=== PATIENT | female | born 1975 | race Caucasian/White ===

== ENCOUNTER 2019-10-19 08:08 | Observation (INO) | payer OTHER ==
[2019-10-13 16:23] LABS: BASOPHILS % 0.2 % (0.0-1.0); HEMATOCRIT 42.4 % (34.2-44.1); LYMPHOCYTES # (AUTO) 1.7 (1.0-3.2); LYMPHOCYTES % 17.3 % (18.0-39.1); MEAN CORPUSCULAR HEMOGLOBIN 29.7 pg (28-32); MEAN CORPUSCULAR VOLUME 89.8 fL (81-99); MONOCYTES # (AUTO) 0.7 (0.2-0.8); MONOCYTES % 6.7 % (4.4-11.3); NEUTROPHILS # (AUTO) 7.6 (2.1-6.9); NEUTROPHILS % 75.2 % (38.7-80.0); PLATELET COUNT 304 x10e3/uL (140-360); RED BLOOD COUNT 4.72 x10e6/uL (3.6-5.1); RED CELL DISTRIBUTION WIDTH 12.2 % (11.7-14.4)
[2019-10-13 16:34] LABS: PROTHROMBIN TIME 13.7 seconds (11.9-14.5)
[2019-10-13 16:35] LABS: PARTIAL THROMBOPLASTIN TIME 28.4 seconds (23.8-35.5)
[2019-10-13 16:39] LABS: ANION GAP 13.3 mmol/L (8-16); BLOOD UREA NITROGEN 11 mg/dL (7-26); BUN/CREATININE RATIO 13 (6-25); CALCIUM 9.3 mg/dL (8.4-10.2); CARBON DIOXIDE 25 mmol/L (22-29); CHLORIDE 106 mmol/L (98-107); CREATININE, SERUM 0.86 mg/dL (0.57-1.11); EST GLOMERULAR FILTRATION RATE > 60 ML/MIN (60-); GLUCOSE 91 mg/dL (74-118); POTASSIUM 4.3 mmol/L (3.5-5.1); SODIUM 140 mmol/L (136-145)
--- NOTE | 2019-10-13 16:52 | Diagnostic Imaging Report ---
Examination: PA and lateral view of the chest. COMPARISON: None. INDICATION: Preoperative evaluation, neck surgery DISCUSSION: Lines/tubes: None. Lungs: The lungs are well inflated and clear. No pneumonia or pulmonary edema. Pleura: No pleural effusion or pneumothorax. Heart and mediastinum: The heart and the mediastinum are unremarkable. Bones and soft tissues: No acute bony abnormalities. IMPRESSION: 1. No acute cardiopulmonary abnormalities. Signed by: Dr. Trevor Nunez M.D. on 10/13/2019 4:49 PM
[~2019-10-19] VITALS: Ht 165.1 cm; Wt 59.0 kg
[~2019-10-19 08:08] MED LIST: CALCIUM CARBON500 MG PO; CELLCEPT500 MG PO; COMBIGAN EYE DRO5 ML OU; CYMBALTA60 MG PO; ELIQUIS2.5 MG PO; ILEVRO1.7 ML OU; LOVENOX40 MG/0.4 SC; MELATONIN3 MG PO; PREDNISONE5 MG PO; PREVACID15 MG PO
[2019-10-19] MEDS ORDERED: BUPIVACAINE 0.5%/EPI 30 ML SDV INJ ONE (08:25)
[2019-10-19] MEDS ORDERED: BACITRACIN 50,000 UNIT VIAL ONE (08:25)
[2019-10-19] MEDS ORDERED: THROMBIN FOR SOLN 5,000 UNIT VIAL ONE (08:25)
[2019-10-19] MEDS ORDERED: CEFAZOLIN SOD 1 GM/NS 50ML 100 ML IV ONE (08:34)
[2019-10-19] MEDS ORDERED: EPHEDRINE SULFATE INJ 50 MG/ML VIAL ONE (11:05)
[2019-10-19] MEDS ORDERED: HYDROMORPHONE 2MG/ML 2 MG/ML ML IV PRN (12:15)
[2019-10-19] MEDS ORDERED: PROMETHAZINE HCL (IM) 25 MG/ML VIAL IM PRN (12:15)
[2019-10-19] MEDS ORDERED: CARISOPRODOL 350 MG TAB PO PRN (12:15)
[2019-10-19] MEDS ORDERED: ACETAMINOPHEN 325 MG TAB PO PRN (12:15)
[2019-10-19] MEDS ORDERED: CEPACOL SORE THROAT LOZENGES PO PRN (12:15)
[2019-10-19] MEDS ORDERED: MAGNESIUM/ALUMINUM/SIMETHICONE 30 ML UDC PO PRN (12:15)
[2019-10-19] MEDS: LACTATED RINGER'S 1,000 ML IV SCH ×2 (12:15→20:35)
[2019-10-19] MEDS ORDERED: ONDANSETRON HCL INJ 2MG/ML 2ML 2 MG/ML VIAL IV PRN (12:15)
[2019-10-19] MEDS ORDERED: MORPHINE SULFATE 5 MG/ML VIAL IM PRN (12:15)
[2019-10-19] MEDS ORDERED: LORAZEPAM INJ 2 MG/ML VIAL ONE (12:18)
[2019-10-19] MEDS ORDERED: FENTANYL CITRATE/PF 100MCG/2 ML INJ ONE ×2 (12:26→14:41)
[2019-10-19] MEDS ORDERED: HYDROMORPHONE 1MG/1ML INJ ONE (12:46)
--- NOTE | 2019-10-19 13:24 | Operative Report ---
DATE OF PROCEDURE: 10/19/2019 SURGEON: Andreas Smith MD PREOPERATIVE DIAGNOSIS: C5-C6 and C6-C7 spondylosis and disk herniation with radiculopathy, M50.120. POSTOPERATIVE DIAGNOSIS: C5-C6 and C6-C7 spondylosis and disk herniation with radiculopathy, M50.120. PROCEDURES: 1. C5-C6 anterior cervical diskectomy and microsurgical osteophyte resection and allograft fusion, 49146. 2. C6-C7 anterior cervical diskectomy and microsurgical osteophyte resection and allograft fusion, 63763. 3. Preparation of tricortical iliac crest allograft, 72921. 4. C5-C6 and C6-C7 anterior cervical plating with Synthes small stature plate, 71209. ANESTHESIA: General. INDICATIONS: The patient is a 44-year-old woman, who presents with C5-C6 and C6-C7 spondylosis and disk herniations with cervical radiculopathy, worse on the left and refractory to conservative treatment. She was taken surgery for two-level anterior cervical decompression and fusion. PROCEDURE IN DETAIL: After induction of general anesthesia, the patient was placed on the operating table in supine position. The right side of the neck was prepped and draped in sterile fashion. The fluoroscopic C-arm was positioned in cross-table lateral orientation. A transverse incision was created. The right side of neck superimposed on the C6 vertebral body as determined by fluoroscopy. The platysma was divided in line with the incision. A subplatysmal dissection was carried out and avascular plane of dissection was developed medially. Sternocleidomastoid muscle was followed medial to the carotid sheath to the anterior border of the cervical spine. The deep cervical fascia was opened. The esophagus was retracted to the left. The attachments of longus colli muscles to the anterolateral aspects of vertebral bodies of C5, C6, and C7 were divided. The anterior longitudinal ligament was resected. Mcarthur posts were inserted into C5 and C7. The Mcarthur distractor was used to distract both disk spaces simultaneously. The anterior annuli of the disks were incised with a #11 blade and the contents of both disks were thoroughly evacuated with angled curettes and pituitary instruments. The posterior osteophytes were then meticulously drilled under operating microscope with a 2 mm cutting bur on a high-speed drill until they were completely removed. The posterior annulus of the disk, herniated disk material, and the posterior longitudinal ligament were then resected layer by layer until the dura was fully exposed and decompressed. Specifically, left-sided disk herniation at C6-C7 and a right-sided disk herniation at C5-C6 were retrieved and removed. The medial aspects of the uncinate processes were further resected bilaterally at both levels to expose and decompress the origins of the corresponding C6 and C7 nerve roots. After satisfactory decompression had been achieved, the endplates were prepared for fusion. Two pieces of tricortical iliac crest allograft were cut to size and shapes of the disk spaces and were inserted into disk spaces under distraction and fluoroscopic guidance. The distraction was released and distraction posts were removed. A Synthes CSLP small stature anterior cervical plate measuring 31 mm in length was selected and was affixed to the vertebral bodies of C5, C6, and C7 with three pairs of 14 x 4.35 mm screws. All screw holes were drilled and tapped on the lateral fluoroscopic guidance. All screws were locked with the appropriate locking screws. An excellent construct was obtained. The wound was copiously irrigated with bacitracin solution. Meticulous hemostasis was secured. Retractor was removed. The platysma was closed with 3-0 Vicryl sutures. The skin was closed with 4-0 Monocryl sutures in subcuticular fashion. Steri-Strips and dressing were applied. The patient was awakened, extubated, and taken to Postanesthesia Care Unit in stable condition. No intraoperative complications were encountered. Estimated blood loss was 20 mL. Andreas Smith MD PP/PRISCILLA /[id number]
--- OUTSIDE RECORDS SUMMARY | 2019-10-19 13:40 | XMS REPORT | Summary of Care ---
Author Author [facility] Organization [facility] Address Unknown Phone Unavailable Encounter FIN [facility] [id number] Date(s): 12/28/17 - 12/28/17 [facility] [address] [place], [place] [address] Discharge Diagnosis: Spondylosis without myelopathy or radiculopathy, cervical r egion Discharge Disposition: Discharged to Home or Self Care Attending Physician: Saw HELLER, Sebastian Cheung Admitting Physician: Sebastian Spring MD Vital Signs 1 2 3 Most recent to oldest [Reference Range]: 37 DegC (12/28/17 11:03 AM) Temperature Temporal Artery [36.3-37.8 DegC] 63 bpm (12/28/17 11:03 AM) Peripheral Pulse Rate [55-105 bpm] 63 bpm (12/28/17 11:45 AM) 70 bpm (12/28/17 11:40 AM) 62 bpm (12/28/17 11:35 AM) Heart Rate Monitored [60-100 bpm] 14 (12/28/17 11:45 AM) 18 (12/28/17 11:40 AM) 18 (12/28/17 11:35 AM) Respiratory Rate [12-20] 99 % (12/28/17 11:45 AM) 100 % (12/28/17 11:40 AM) 99 % (12/28/17 11:35 AM) SpO2 [90-100 %] 103/59 mmHg *LOW* (12/28/17 11:45 AM) Blood Pressure [110-120/65-85 mmHg] 118 mmHg (12/28/17 11:40 AM) 119 mmHg (12/28/17 11:35 AM) Systolic Blood Pressure [110-120 mmHg] 70 mmHg (12/28/17 11:40 AM) 80 mmHg (12/28/17 11:35 AM) Diastolic Blood Pressure [65-85 mmHg] 73.7 mmHg (12/28/17 11:45 AM) Mean Arterial Pressure, Cuff 166 cm (12/28/17 11:03 AM) Height 166 cm (12/28/17 11:03 AM) Height/Length Dosing 65 in (12/28/17 11:03 AM) Height Inches 57 kg (12/28/17 11:03 AM) Weight 57 kg (12/28/17 11:03 AM) Weight Dosing 125 lb (12/28/17 11:03 AM) Weight Pounds 20.69 kg/m2 (12/28/17 11:03 AM) Body Mass Index Problem List Condition Effective Dates Status Health Status Informan t DVT - Deep vein Active thrombosis(Confirmed ) Factor 5 Leiden Active mutation(Confirmed) Fibromyalgia(Confirm Active ed) GERD - Active Gastro-esophageal reflux disease(Confirmed) Neuropathy(Confirmed Active ) Allergies, Adverse Reactions, Alerts Substance Reaction Severity Status erythromycin Active Medications Cymbalta 60 mg oral delayed release capsule 60 mg = 1 caps, Oral, Daily, (do not crush or chew) Start Date: 12/27/17 Stop Date: 01/10/18 Status: Ordered Eliquis 2.5 mg oral tablet mg tabs, Oral, BID Start Date: 12/27/17 Stop Date: 01/10/18 Status: Ordered Lovenox 80 mg/0.8 mL injectable solution 80 mg = 0.8 mL, Subcutaneous, Daily Start Date: 12/27/17 Stop Date: 01/10/18 Status: Ordered LR 500 mL 500 mL, IV, 75 mL/hr, start date 12/28/17 10:34:00 CDT Start Date: 12/28/17 Stop Date: 12/28/17 Status: Discontinued Zantac 150 150 mg = 1 tabs, Oral, Daily Start Date: 12/27/17 Stop Date: 01/10/18 Status: Ordered Results No data available for this section Immunizations No data available for this section Procedures Procedure Date Related Diagnosis Body Site Hysterectomy sinus surgery tonsillectomy and adenoidectomy vein graft due to clot Social History Social History Type Response Assessment and Plan No data available for this section
--- OUTSIDE RECORDS SUMMARY | 2019-10-19 13:40 | XMS REPORT | Summary of Care ---
Author Author [facility] Address Unknown Phone Unavailable Encounter [facility](FIN) [id number] Date(s): 09/12/19 - 10/11/19 [facility] Discharge Disposition: Home or Self Care Attending Physician: Casper Stover MD Vital Signs No data available for this section Problem List Condition Effective Dates Status Health Status Informan t Cervical Active pain(Confirmed) Allergies, Adverse Reactions, Alerts Substance Reaction Severity Status erythromycin Active Medications No data available for this section Results No data available for this section Immunizations No data available for this section Procedures Procedure Date Related Diagnosis Body Site Status Adenoidectomy Completed Hysterectomy - partial Completed sinus surgery Completed Tonsillectomy Completed Vein graft thrombectomy Completed Social History Social History Type Response Smoking Status Never smoker; Exposure to T obacco Smoke None; Cigarette Smoking Last 365 Days No; Reg Smoking Cessation Counseli ng No entered on: 04/27/19 Assessment and Plan No data available for this section
--- OUTSIDE RECORDS SUMMARY | 2019-10-19 13:40 | XMS REPORT | Summary of Care ---
Author Author [facility] Organization [facility] Address Unknown Phone Unavailable Encounter [facility] Neena(FIN) [id number] Date(s): 02/19/19 - 02/19/19 [facility] [address] [place] [address]- [phone] Encounter Diagnosis Flu-like symptoms (Discharge Diagnosis) - 02/19/19 Cough (Discharge Diagnosis) - 02/19/19 Sinusitis (Discharge Diagnosis) - 02/19/19 Discharge Disposition: Home or Self Care Attending Physician: Vinay Sheppard MD Vital Signs Most recent to 1 2 oldest [Reference Range]: Height 165.1 cm (02/19/19 2:34 PM) Temperature Oral 97.9 DegF [96.4-99.1 DegF] (02/19/19 2:34 PM) Blood Pressure 130/79 mmHg 116/80 mmHg [90-140/60-90 mmHg] (02/19/19 5:03 PM) (02/19/19 2:34 PM) Respiratory Rate 17 BRMIN 18 BRMIN [14-20 BRMIN] (02/19/19 5:03 PM) (02/19/19 2:34 PM) Peripheral Pulse 65 bpm 67 bpm Rate [60-100 bpm] (02/19/19 5:03 PM) (02/19/19 2:34 PM) Weight 60.909 kg (02/19/19 2:34 PM) Body Mass Index 22.35 m2 (02/19/19 2:34 PM) Problem List Condition Effective Dates Status Health Status Informan t Cervical Active pain(Confirmed) Allergies, Adverse Reactions, Alerts Substance Reaction Severity Status erythromycin Active Medications Levaquin 750 mg oral tablet 750 mg = 1 tab, PO, Q24H, X 10 day, # 10 tab, 0 Refill(s) Start Date: 02/19/19 Stop Date: 03/01/19 Status: Ordered NS (Bolus) IV 1,000 mL, 1,000 ml/hr, Infuse Over: 1 hr, Route: IV, ONCE, Priority: STAT, Dosin g Weight 60.909 kg, Start date: 02/19/19 15:04:00 ONCOLOGY RADIATION PHYSICIAN, Stop date: 02/19/19 15:04 :00 ONCOLOGY RADIATION PHYSICIAN Start Date: 02/19/19 Stop Date: 02/19/19 Status: Completed TamiFLU 75 mg oral capsule 75 mg, PO, Q12H, X 5 day, # 10 cap, 0 Refill(s) Start Date: 02/19/19 Stop Date: 02/24/19 Status: Ordered Results Most recent to 1 oldest [Reference Range]: Neutrophils # 9.9 K/CMM [1.5-8.1 K/CMM] *HI* (02/19/19 3:13 PM) Lymphocytes # 0.8 K/CMM [1.0-5.5 K/CMM] *LOW* (02/19/19 3:13 PM) Monocytes # [0.0-0.8 0.2 K/CMM K/CMM] (02/19/19 3:13 PM) eGFR 87 mL/min/1.73m2 1 *NA* (02/19/19 3:13 PM) Influ A [Negative] Negative (02/19/19 3:13 PM) Influ B [Negative] Negative (02/19/19 3:13 PM) A/G Ratio [0.7-1.6] 1.3 (02/19/19 3:13 PM) Albumin Lvl [3.5-5.0 3.5 g/dL g/dL] (02/19/19 3:13 PM) Alk Phos [39-136 55 unit/L unit/L] (02/19/19 3:13 PM) ALT [0-65 unit/L] 30 unit/L (02/19/19 3:13 PM) AGAP [10.0-20.0 10.9 mEq/L mEq/L] (02/19/19 3:13 PM) AST [0-37 unit/L] 22 unit/L (02/19/19 3:13 PM) B/C Ratio [6-25] 16 (12/15/19 3:13 PM) Basophils [0.0-1.0 0.2 % %] (02/19/19 3:13 PM) BUN [7-22 mg/dL] 13 mg/dL (02/19/19 3:13 PM) Calcium Lvl 8.7 mg/dL [8.5-10.5 mg/dL] (02/19/19 3:13 PM) Total CK [12-191 49 unit/L unit/L] (02/19/19 3:13 PM) Chloride Lvl [95-109 104 mEq/L mEq/L] (02/19/19 3:13 PM) CO2 [24-32 mEq/L] 29 mEq/L (02/19/19 3:13 PM) Creatinine Lvl 0.83 mg/dL [0.50-1.40 mg/dL] (02/19/19 3:13 PM) Globulin [2.7-4.2 2.7 g/dL g/dL] (02/19/19 3:13 PM) Glucose Lvl [70-99 114 mg/dL mg/dL] *HI* (02/19/19 3:13 PM) Hct [36.0-48.0 %] 42.6 % (02/19/19 3:13 PM) Hgb [12.0-16.0 g/dL] 14.6 g/dL (02/19/19 3:13 PM) Potassium Lvl 3.9 mEq/L [3.5-5.1 mEq/L] (02/19/19 3:13 PM) Lactic Acid Lvl 1.0 mMol/L [0.5-2.2 mMol/L] (02/19/19 3:13 PM) Lymphocytes 7.3 % [20.0-40.0 %] *LOW* (02/19/19 3:13 PM) MCH [27.0-31.0 pg] 31.4 pg *HI* (02/19/19 3:13 PM) MCHC [32.0-36.0 34.2 g/dL g/dL] (02/19/19 3:13 PM) MCV [80.0-98.0 fL] 91.9 fL (02/19/19 3:13 PM) Monocytes [2.0-12.0 1.6 % %] *LOW* (02/19/19 3:13 PM) MPV [7.4-10.4 fL] 7.1 fL *LOW* (02/19/19 3:13 PM) Sodium Lvl [135-145 140 mEq/L mEq/L] (02/19/19 3:13 PM) Platelet [133-450 262 K/CMM K/CMM] (02/19/19 3:13 PM) Segs [45.0-75.0 %] 90.9 % *HI* (02/19/19 3:13 PM) Total Protein 6.2 g/dL [6.4-8.4 g/dL] *LOW* (02/19/19 3:13 PM) RBC [4.20-5.40 4.64 M/CMM M/CMM] (02/19/19 3:13 PM) RDW [11.5-14.5 %] 12.7 % (02/19/19 3:13 PM) Grp A Strep Scr Negative [Negative] (02/19/19 3:13 PM) Bili Total [0.2-1.3 0.4 mg/dL mg/dL] (02/19/19 3:13 PM) Troponin-I <0.02 ng/mL [0.00-0.40 ng/mL] (02/19/19 3:13 PM) UA Bacteria [None None Seen Seen] (02/19/19 3:34 PM) UA Bili [Negative] Negative *NA* (02/19/19 3:34 PM) UA Blood [Negative] Negative (02/19/19 3:34 PM) UA Color [Yellow] Yellow *NA* (02/19/19 3:34 PM) UA Glucose Negative [Negative] (02/19/19 3:34 PM) UA Ketones Negative [Negative] *NA* (02/19/19 3:34 PM) UA Leuk Est Negative [Negative] (02/19/19 3:34 PM) UA Nitrite Negative [Negative] (02/19/19 3:34 PM) UA pH [5.0-8.0] 7.5 (02/19/19 3:34 PM) UA Protein Negative [Negative] (02/19/19 3:34 PM) UA RBC [0-2 /HPF] 0-2 /HPF (02/19/19 3:34 PM) UA Spec Grav 1.015 [<=1.030] (02/19/19 3:34 PM) UA Sq Epi [Few /LPF] Occasional /LPF (02/19/19 3:34 PM) UA Turbidity [Clear] Clear (02/19/19 3:34 PM) UA Urobilinogen 0.2 EU/dL [0.1-1.0 EU/dL] (02/19/19 3:34 PM) UA WBC [None Seen] None Seen (02/19/19 3:34 PM) WBC [3.7-10.4 K/CMM] 10.9 K/CMM *HI* (02/19/19 3:13 PM) 1Result Comment: The eGFR is calculated using the CKD-EPI formula. In most young, healthy individuals the eGFR will be >90 mL/min/1.73m2. The eGFR declines with age. An eGFR of 60-89 may be normal in some populations, particularly the elderly, for whom the CKD-EPI formula has not been extensively validated. Use of the eGFR is not recommended in the following populations: Individuals with unstable creatinine concentrations, including patients and those with serious co-morbid conditions. Patients with extremes in muscle mass or diet. The data above are obtained from the National Kidney Disease Education Program ( NKDEP) which additionally recommends that when the eGFR is used in patients with extremes of body mass index for purposes of drug dosing, the eGFR should be mul tiplied by the estimated BMI. Immunizations No data available for this section Procedures Procedure Date Related Diagnosis Body Site Status Adenoidectomy Completed Hysterectomy - partial Completed sinus surgery Completed Tonsillectomy Completed Vein graft thrombectomy Completed Social History Social History Type Response Smoking Status Never smoker; Exposure to T obacco Smoke None; Cigarette Smoking Last 365 Days No; Reg Smoking Cessation Counseli ng No entered on: 02/19/19 Assessment and Plan No data available for this section
--- OUTSIDE RECORDS SUMMARY | 2019-10-19 13:40 | XMS REPORT | Continuity of Care Document ---
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 Role Phone [employer] Unavailable Un available Problems Problem Status Onset Date Classification Date Reported Comments Source CERICALGIA/MYALGIA Active 09/07/2019 [facility] Other general symptoms and signs 02/19/2019 02/21/2019 [facility] Cough 02/1902/21/2019 [facility] Chronic sinusitis, unspecified 02/19/2019 02/21/2019 [facility] HYPOTENSION Active 02/19/2019 [facility] Spondylosis without myelopathy or radicu lopathy, cervical region 01/19/2018 01/21/2018 [facility] Neck pain (finding) Active Problem 2019 [facility],[id number] Deep venous thrombosis (disorder) Active Problem [facility] Factor V Leiden mutation (disorder) Active Problem [facility] Fibromyalgia (disorder) Active Problem 10/05/2019 [facility] Gastroesophageal reflux disease (disorder) Active Problem 10/05/2019 [facility] Neuropathy (disorder) Active Problem 10/05/2019 [facility] Depressive disorder (disorder) Active Problem [facility] Medications Medication Details Route Status Patient Instructions Ordering Provider Order Date Source Levofloxacin 750 MG Oral Tablet [Levaquin] 750 mg = 1 tab, PO, Q24H, X 10 day, # 10 tab, 0 Refill(s) Active 02/19/2019 [facility] Oseltamivir 75 MG Oral Capsule [Tamiflu] 75 mg, PO, Q12H, X 5 day, # 10 cap, 0 Refill(s) Active 02/19/2019 [facility] NS (Bolus) IV 1,000 mL, 1,000 ml/hr, Infuse Over: 1 hr, Route: IV, ONCE, Priority: STAT, Dosing Weight 60.909 kg, 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, 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: 02/19/19 15:04:00 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 Inactive 02/19/2019 [facility] Vitamin D chewable 5000 units 1 tabs, Oral, Daily Active 01/19/2018 [facility] Probiotic Formula caps, Oral, Daily, 0 Refill(s) Active 01/19/2018 [facility] LR 500 mL 500 mL, IV, 75 mL/hr , start date 12/28/17 10:34:00 CDT Inactive 12/28/2017 [facility] Zantac 150 150 mg = 1 tabs, Or al, Daily Active 12/27/2017 [facility] duloxetine 60 MG Enteric Coated Capsule [Cymbalta] 60 mg = 1 caps, Oral, Daily, (do not crush or chew) Active 12/27/2017 [facility] 0.8 ML Enoxaparin sodium 100 MG/ML Prefi lled Syringe [Lovenox] 80 mg = 0.8 mL, Subcutaneous, Daily Active 12/27/2017 [facility] apixaban 2.5 MG Oral Tablet [Eliquis] mg tabs, Oral, BID Active 12/27/2017 [facility] Allergies, Adverse Reactions, Alerts Substance Category Reaction Severity Reaction type Status Date Reported Comments Source erythromycin Assertion Drug allergy Active [id number] Immunizations No Data Provided for This Section Results Order Name Results Value Reference Range Date Interpretation Comments Source URINE AND STOOL UA Color Yellow *NA* (02/19/19 3:34 PM) Yellow 02/19/2019 [facility] URINE AND STOOL UA Turbidity Clear (02/19/19 3:34 PM) Clear 02/19/2019 [facility] URINE AND STOOL UA Spec Grav 1.015 <=1.030 02/19/2019 [facility] URINE AND STOOL UA pH 7.5 5.0 - 8.0 02/19/2019 [facility] URINE AND STOOL UA Protein Negative (02/19/19 3:34 PM) Negative 02/19/2019 [facility] URINE AND STOOL UA Glucose Negative (02/19/19 3:34 PM) Negative 02/19/2019 [facility] URINE AND STOOL UA Ketones Negative *NA* (02/19/19 3:34 PM) Negative 02/19/2019 [facility] URINE AND STOOL UA Bili Negative *NA* (02/19/19 3:34 PM) Negative 02/19/2019 [facility] URINE AND STOOL UA Blood Negative (02/19/19 3:34 PM) Negative 02/19/2019 [facility] URINE AND STOOL UA Urobilinogen 0.2 0.1 - 1.0 02/19/2019 [facility] URINE AND STOOL UA Nitrite Negative (02/19/19 3:34 PM) Negative 02/19/2019 [facility] URINE AND STOOL UA Leuk Est Negative (02/19/19 3:34 PM) Negative 02/19/2019 [facility] URINE AND STOOL UA Sq Epi Occasional /LPF Few /LPF 02/19/2019 [facility] URINE AND STOOL UA WBC None Seen (02/19/19 3:34 PM) None Seen 02/19/2019 [facility] URINE AND STOOL UA RBC 0-2 /HPF 0 - 2 02/19/2019 [facility] URINE AND STOOL UA Bacteria None Seen (02/19/19 3:34 PM) None Seen 02/19/2019 [facility] CARDIAC ENZYMES Total CK 49 12 - 191 02/19/2019 [facility] CARDIAC ENZYMES Troponin-I <0.02 0.00 - 0.40 02/19/2019 [facility] CHEM PANEL Glucose Lvl 114 70 - 99 02/19/2019 [facility] CHEM PANEL BUN 13 7 - 22 02/19/2019 [facility] CHEM PANEL Creatinine Lvl 0.83 0.50 - 1.40 02/19/2019 [facility] CHEM PANEL Sodium Lvl 140 135 - 145 02/19/2019 [facility] CHEM PANEL Potassium Lvl 3.9 3.5 - 5.1 02/19/2019 [facility] CHEM PANEL Chloride Lvl 104 95 - 109 02/19/2019 [facility] CHEM PANEL CO2 29 24 - 32 02/19/2019 [facility] CHEM PANEL Calcium Lvl 8.7 8.5 - 10.5 02/19/2019 [facility] CHEM PANEL Total Protein 6.2 6.4 - 8.4 02/19/2019 [facility] CHEM PANEL Albumin Lvl 3.5 3.5 - 5.0 02/19/2019 [facility] CHEM PANEL ALT 30 0 - 65 02/19/2019 [facility] CHEM PANEL AST 22 0 - 37 02/19/2019 [facility] CHEM PANEL Alk Phos 55 39 - 136 02/19/2019 [facility] CHEM PANEL Bili Total 0.4 0.2 - 1.3 02/19/2019 [facility] CHEM PANEL eGFR 87 02/19/2019 Result Comment: The eGFR is calculated using the [...] from the National Kidney Disease Education Program (NKDEP) which additionally recommends that when the eGFR is used in patients with extremes of body mass index for purposes of drug dosing, the eGFR should be multiplied by the estimated BMI. [facility] CHEM PANEL AGAP 10.9 10.0 - 20.0 02/19/2019 [facility] CHEM PANEL B/C Ratio 16 6 - 25 02/19/2019 [facility] CHEM PANEL Globulin 2.7 2.7 - 4.2 02/19/2019 [facility] CHEM PANEL A/G Ratio 1.3 0.7 - 1.6 02/19/2019 [facility] CHEM PANEL Lactic Acid Lvl 1.0 0.5 - 2.2 02/19/2019 [facility] WBC 10.9 3.7 - 10.4 02/19/2019 [facility] RBC 4.64 4.20 - 5.40 02/19/2019 [facility] Hgb 14.6 12.0 - 16.0 02/19/2019 [facility] Hct 42.6 36.0 - 48.0 02/19/2019 [facility] MCV 91.9 80.0 - 98.0 02/19/2019 [facility] MCH 31.4 27.0 - 31.0 02/19/2019 [facility] MCHC 34.2 32.0 - 36.0 02/19/2019 [facility] RDW 12.7 11.5 - 14.5 02/19/2019 [facility] Platelet 262 133 - 450 02/19/2019 [facility] MPV 7.1 7.4 - 10.4 02/19/2019 [facility] Segs 90.9 45.0 - 75.0 02/19/2019 [facility] Lymphocytes 7.3 20.0 - 40.0 02/19/2019 [facility] HEMATOLOGY Monocytes 1.6 2.0 - 12.0 02/19/2019 [facility] HEMATOLOGY Basophils 0.2 0.0 - 1.0 02/19/2019 [facility] HEMATOLOGY Neutrophils # 9.9 1.5 - 8.1 02/19/2019 [facility] HEMATOLOGY Lymphocytes # 0.8 1.0 - 5.5 02/19/2019 [facility] Monocytes # 0.2 0.0 - 0.8 02/19/2019 [facility] RAPID Grp A Strep Scr Negative (02/19/19 3:13 PM) Negative 02/19/2019 [facility] VIRAL - SEROLOGY Influ A Negative (02/19/19 3:13 PM) Negative 02/19/2019 [facility] VIRAL - SEROLOGY Influ B Negative (02/19/19 3:13 PM) Negative 02/19/2019 [facility] Pathology Reports No Data Provided for This Section Diagnostic Reports Report Value Date Source Chest Pulmonary Embolism CTA Radiation Dose CTDIVOL = 0 (mGy): DLP = 434.2 (mGy-cm) PROCEDURE INFORMATION: Exam: CT Angiography Chest With Contrast Exam date and time: 02/19/2019 3:58 PM Age: 43 years old Clinical history: Chest pain; Additional info: /chest pain, h/o clotting disorder, eval for pe TECHNIQUE: Imaging protocol: Computed tomographic angiography of the chest with intravenous contrast. 3D rendering: MIP reconstructed images w ere created and reviewed. Total DLP: 434.2 mGy-cm Radiation optimization: All CT scans at this facility use at least one of these dose optimization techniques: automated exposure control; mA and/or kV adjustment per patient size (includes targeted exams where dose is matched to clinical indication); or iterative reconstruction. Contrast material: OMNI 300; Contrast volume: 100 ml; Contrast route: IV; COMPARISON: No relevant prior studies available. FINDINGS: Pulmonary arteries: No intraluminal filling defects are visualized in the pulmonary trunk, right and left main pulmonary arteries, lobar and segmental arteries. Aorta: No aortic aneurysm. No aortic dissection. Thyroid: Symmetric appearance of thyroid gland without focal abnormality. Lungs: Mild pulmonary hyperinflation. No consolidation. Pleural space: Mild biapical pleural parenchymal scarring. Heart: Cardicac silhouette size is within normal limits. No pericardial effusion. Liver: Mild fatty infiltration of liver. Lymph nodes: No enlarged lymph nodes are noted in the mediastinum or hilar regions. Bones/joints: No acute abnormality is noted. Soft tissues: Unremarkable. Other findings: none IMPRESSION: No pulmonary emboli are visualized. Richie Mayo MD On 02/19/2019 16:35:43; [id number] 02/19/2019 [facility] Consultation Notes No Data Provided for This Section Discharge Summaries No Data Provided for This Section History and Physicals No Data Provided for This Section Vital Signs Vital Sign Value Date Comments Source Systolic (mm Hg) 130 02/19/2019 [facility] Diastolic (mm Hg) 79 02/19/2019 [facility] Heart Rate 65 02/19/2019 [facility] Respitory Rate 17 02/19/2019 [facility] Systolic (mm Hg) 116 02/19/2019 [facility] Diastolic (mm Hg) 80 02/19/2019 [facility] Heart Rate 67 02/19/2019 [facility] Respitory Rate 18 02/19/2019 [facility] Temperature Oral (F) 97.9 F 02/19/2019 [facility] Height 165.1 cm 02/19/2019 [facility] BMI Calculated 22.35 02/19/2019 [facility] Weight 60.909 02/19/2019 [facility] Heart Rate 76 01/19/2018 [facility] Systolic (mm Hg) 134 01/19/2018 [facility] Diastolic (mm Hg) 84 01/19/2018 [facility] Respitory Rate 16 01/19/2018 [facility] Respitory Rate 16 01/19/2018 [facility] Heart Rate 99 01/19/2018 [facility] Systolic (mm Hg) 129 01/19/2018 [facility] Diastolic (mm Hg) 97 01/19/2018 [facility] Heart Rate 78 01/19/2018 [facility] Systolic (mm Hg) 139 01/19/2018 [facility] Respitory Rate 16 01/19/2018 [facility] Diastolic (mm Hg) 95 01/19/2018 [facility] Weight Measured 57 01/17/2018 [facility] Height 166 cm 01/17/2018 [facility] Respitory Rate 14 12/28/2017 [facility] Systolic (mm Hg) 103 12/28/2017 [facility] Diastolic (mm Hg) 59 12/28/2017 [facility] Heart Rate 63 12/28/2017 [facility] Diastolic (mm Hg) 70 12/28/2017 [facility] Heart Rate 70 12/28/2017 [facility] Systolic (mm Hg) 118 12/28/2017 [facility] Respitory Rate 18 12/28/2017 [facility] Heart Rate 62 12/28/2017 [facility] Respitory Rate 18 12/28/2017 [facility] Diastolic (mm Hg) 80 12/28/2017 [facility] Systolic (mm Hg) 119 12/28/2017 [facility] Weight Measured 57 12/28/2017 [facility] Height 166 cm 12/28/2017 [facility] Temperature Oral (F) 37 Winnie 12/28/2017 [facility] Peripheral Pulse Rate 63 12/28/2017 [facility] Encounters Location Location Details Encounter Type Encounter Number Reason For Visit Attending Provider ADM Date DC Date Status Source Outpatient [id number] RODERICK VEGAS JR 11/03/2017 Active [facility] Outpatient [id number] RODERICK VEGAS JR 12/15/2017 Active [facility] KW KWSH Ou tpatient [id number] Gil Spring MD 12/28/2017 12/28/2017 Active [facility] Outpatient [id number] Sebastian Spring MD 12/28/2017 12/28/2017 [facility] K[facility] Ou tpatient [id number] Glory Flaherty MD 01/19/2018 01/19/2018 Active [facility] Outpatient [id number] Massimo Flaherty MD 01/19/2018 01/19/2018 [facility] Outpatient [id number] RODERICK VEGAS JR 02/02/2018 Active [facility] Emergency [id number] Vinay Valarie 02/19/2019 02/19/2019 [facility] Outpatient [id number] Cosmo Araujo 04/27/2019 [facility] OP Therapy Patients [id number] Casper Guoberpaolo 09/12/2019 10/12/2019 [id number] [facility] K[facility] Ou tpatient [id number] Tanvir moctezuma Scobercea 10/03/2019 10/03/2019 Active [facility] Outpatient [id number] Casper Guoberceadam 10/03/2019 10/04/2019 [facility] Procedures Procedure Code Date Perfomer Comments Source Adenoidectomy [id number] [facility],[id number] Hysterectomy - partial [id number] 02 [facility],[id number] sinus surgery [id number] [facility],[id number] Tonsillectomy [id number] [facility],[id number] Vein graft thrombectomy [id number] 04 [facility],[id number] Hysterectomy [id number] [facility] sinus surgery [facility] tonsillectomy and adenoidectomy [facility] vein graft due to clot [facility] Assessment and Plan No Data Provided for This Section Plan of Care No Data Provided for This Section Social History Social History Date Source Social History TypeResponse 10/04/2019 [facility] Social History TypeResponse Smoking Status Never smoker; Exposure to Tobacco Smoke None; Cigarette Smoking Last 365 Days No; Reg Smoking Cessation Counseling No entered on: 04/27/19 04/27/2019 [id number] Social History TypeResponse Smoking Status Never smoker; Exposure to Tobacco Smoke None; Cigarette Smoking Last 365 Days No; Reg Smoking Cessation Counseling No entered on: 02/19/19 02/19/2019 [facility] Family History No Data Provided for This Section Advance Directives No Data Provided for This Section Functional Status No Data Provided for This Section
--- OUTSIDE RECORDS SUMMARY | 2019-10-19 13:40 | XMS REPORT | Summary of Care ---
Author Author [facility] Organization [facility] Address Unknown Phone Unavailable Encounter FIN [facility] [id number] Date(s): 01/19/18 - 01/19/18 [facility] [address] [place], [place] [address] Discharge Diagnosis: Spondylosis without myelopathy or radiculopathy, cervical r egion Discharge Disposition: Discharged to Home or Self Care Attending Physician: Krystina HELLER, Massimo Rodriguez Admitting Physician: Krystina HELLER, Massimo Rodriguez Vital Signs 1 2 3 Most recent to oldest [Reference Range]: 76 bpm (01/19/18 11:05 AM) 99 bpm (01/19/18 11:00 AM) 78 bpm (01/19/18 10:55 AM) Heart Rate Monitored [60-100 bpm] 16 (01/19/18 11:05 AM) 16 (01/19/18 11:00 AM) 16 (01/19/18 10:55 AM) Respiratory Rate [12-20] 99 % (01/19/18 11:05 AM) 97 % (01/19/18 11:00 AM) 97 % (01/19/18 10:55 AM) SpO2 [90-100 %] 134/84 mmHg *HI* (01/19/18 11:05 AM) Blood Pressure [110-120/65-85 mmHg] 129 mmHg *HI* (01/19/18 11:00 AM) 139 mmHg *HI* (01/19/18 10:55 AM) Systolic Blood Pressure [110-120 mmHg] 97 mmHg *HI* (01/19/18 11:00 AM) 95 mmHg *HI* (01/19/18 10:55 AM) Diastolic Blood Pressure [65-85 mmHg] 100.7 mmHg (01/19/18 11:05 AM) Mean Arterial Pressure, Cuff 166 cm (01/17/18 2:56 PM) Height 166 cm (01/17/18 2:56 PM) Height/Length Dosing 65 in (01/17/18 2:56 PM) Height Inches 57 kg (01/17/18 2:56 PM) Weight 57 kg (01/17/18 2:56 PM) Weight Dosing 125 lb (01/17/18 2:56 PM) Weight Pounds 20.69 kg/m2 (01/17/18 2:56 PM) Body Mass Index Problem List Condition Effective Dates Status Health Status Informan t Depression(Confirmed Active ) DVT - Deep vein Active thrombosis(Confirmed ) [...] Date: 12/27/17 Stop Date: 01/10/18 Status: Ordered Probiotic Formula caps, Oral, Daily, 0 Refill(s) Start Date: 01/19/18 Stop Date: 02/02/18 Status: Ordered Vitamin D chewable 5000 units 1 tabs, Oral, Daily Start Date: 01/19/18 Stop Date: 02/02/18 Status: Ordered Zantac 150 150 mg = 1 tabs, Oral, Daily Start Date: 12/27/17 Stop Date: 01/10/18 Status: Ordered Results No data available for this section Immunizations No data available for this section Procedures No data available for this section Social History Social History Type Response Assessment and Plan No data available for this section
--- OUTSIDE RECORDS SUMMARY | 2019-10-19 13:40 | XMS REPORT | Summary of Care ---
Author Author [facility] Organization [facility] Address Unknown Phone Unavailable Encounter FIN [facility] [id number] Date(s): 10/03/19 - 10/03/19 [facility] [address] [place], [place] [address] Discharge Disposition: Discharged to Home or Self Care Attending Physician: Casper Stover MD Admitting Physician: Casper Stover MD Vital Signs No [...]
[2019-10-19 13:57] VITALS: BP 114/84
[2019-10-19] MEDS ORDERED: MIDAZOLAM HCL 2 MG/2 ML VIAL ONE (14:41)
[2019-10-19 14:57] VITALS: BP 114/84
[2019-10-19 16:00] VITALS: BP 108/80
[2019-10-19] MEDS: CEFAZOLIN SOD 1 GM/NS 50ML 50 ML IV SCH (17:39)
[2019-10-19] MEDS ORDERED: ROCURONIUM BROMIDE 10 MG/ML 5ML VIAL IV ONE (19:24)
[2019-10-19] MEDS ORDERED: SEVOFLURANE INHAL SOLN 250 ML PEN BTL ONE (19:24)
[2019-10-19] MEDS ORDERED: ONDANSETRON HCL INJ 2MG/ML 2ML 2 MG/ML VIAL ONE (19:24)
[2019-10-19] MEDS ORDERED: DEXAMETHASONE SOD PHOS INJ 4 MG/ML VIAL ONE (19:24)
[2019-10-19] MEDS ORDERED: GLYCOPYRROLATE INJ 0.2 MG/ML VIAL ONE (19:24)
[2019-10-19] MEDS ORDERED: PROPOFOL IV EMULSION 10 MG/ML 20 ML VIAL ONE (19:24)
[2019-10-19] MEDS ORDERED: NEOSTIGMINE 1 MG/ML 10ML VIAL ONE (19:24)
[2019-10-19] MEDS ORDERED: KETOROLAC TROMETHAMINE 30 MG/ML VIAL ONE (19:24)
[2019-10-19] MEDS ORDERED: LIDOCAINE HCL 2% LOCAL INJ 5 ML SDV VIAL INJ ONE (19:24)
--- NOTE | 2019-10-19 19:36 | NUR ---
RECEIVED BEDSIDE SHIFT REPORT FROM DAY RN. PT IS ALERT AND ORINETED X3. lUNGS CLEAR,SOFT COLLAR ON. 20 G SL RT FORE ARM. PT DENIES PAIN. UP WALING IN ROOM. CALL LIGHT WITHIN REACH.
[2019-10-19 20:00] VITALS: BP 108/80
[2019-10-19] MEDS ORDERED: MELATONIN 3 MG TAB PO SCH (21:00)
[2019-10-19] MEDS ORDERED: ZOLPIDEM TARTRATE 5 MG TAB PO PRN (21:00)
[2019-10-19] MEDS: OXYCODONE/ACETAMINOPHEN 5-325 1 EACH TABLET PO PRN (21:57)
[2019-10-19] MEDS: BRIMONIDINE/TIMOLOL (OPTH SOLN 5 ML DRPETTE OP SCH (21:58)
[2019-10-20] VITALS: BP 94/61
[2019-10-20] MEDS: CEFAZOLIN SOD 1 GM/NS 50ML 50 ML IV SCH ×2 (02:16→10:14)
[2019-10-20] MEDS ORDERED: SODIUM CHLORIDE 0.9% 250ML 250 ML ONE (02:27)
[2019-10-20 04:00] VITALS: BP 113/81
[2019-10-20] MEDS: LACTATED RINGER'S 1,000 ML IV SCH (04:55)
[2019-10-20] MEDS ORDERED: ENOXAPARIN 30 MG/0.3 ML SYR SC SCH (06:00)
[2019-10-20] MEDS ORDERED: PANTOPRAZOLE SOD 40 MG TABEC PO SCH ×2 (07:30→09:00)
[2019-10-20] MEDS: OXYCODONE/ACETAMINOPHEN 5-325 1 EACH TABLET PO PRN (07:42)
[2019-10-20 08:17] VITALS: BP 99/78
[2019-10-20] MEDS ORDERED: PREDNISONE 5 MG/5 ML SOLN PO SCH (09:00)
[2019-10-20] MEDS ORDERED: NEPAFENAC OP SCH (09:00)
[2019-10-20] MEDS ORDERED: MYCOPHENOLATE MOFETIL 1000 MG PO SCH (09:00)
[2019-10-20] MEDS ORDERED: MYCOPHENOLATE MOFETIL 250 MG CAP PO SCH (09:00)
[2019-10-20] MEDS ORDERED: OYST-CAL-D 500MG TABLET PO SCH (09:00)
[2019-10-20] MEDS ORDERED: PREDNISONE 5 MG TAB PO SCH (09:00)
[2019-10-20] MEDS ORDERED: DULOXETINE HCL 30 MG DELAYED RELEASE PO SCH (09:00)
--- NOTE | 2019-10-20 09:00 | Diagnostic Imaging Report ---
EXAM: C-SPINE 2 VIEWS AP LATERAL DATE: 10/20/2019 6:50 AM INDICATION: Postop COMPARISON: None FINDINGS: There are postsurgical changes from anterior cervical fusion from C5 through C7 with fixation plate/screws appearing intact and in appropriate position. There is no evidence for acute fracture or dislocation. Cervical spinal alignment is within normal limits. Vertebral body heights are maintained. The prevertebral soft tissues are unremarkable. The visualized lung apices are clear. IMPRESSION: No acute radiographic abnormality identified within the cervical spine. Postsurgical changes of anterior cervical fusion from C5 through C7. Signed by: Dr. Ricki Caballero MD on 10/20/2019 8:57 AM
[2019-10-20] MEDS: BRIMONIDINE/TIMOLOL (OPTH SOLN 5 ML DRPETTE OP SCH (10:11)
[2019-10-20 10:21] VITALS: BP 99/78
[2019-10-20] MEDS ORDERED: NORCO 7.5-3251 EACH PO (11:03)
== END 2019-10-20 11:15 | disposition home or self-care (01) ==
LOC: OR 08:08 → PACU V 12:06 → MED/SURG 14:02
PROVIDERS: ADMIT Neurological Surgery; ATTEND Neurological Surgery
DX: M50.120 Mid-cervical disc disorder, unspecified level (principal); K21.9 Gastro-esophageal reflux disease without esophagitis; K58.9 Irritable bowel syndrome, unspecified; H05.129 Orbital myositis, unspecified orbit; Z86.73 Personal history of transient ischemic attack (TIA), and cerebral infarction without residual deficits; Z88.8 Allergy status to other drugs, medicaments and biological substances; Z01.810 Encounter for preprocedural cardiovascular examination; Z01.812 Encounter for preprocedural laboratory examination; Z01.818 Encounter for other preprocedural examination; Z11.59 Encounter for screening for other viral diseases
CPT/HCPCS: 22551; 22552; 22845; 36415; 71046; 72040; 80048; 85025; 85610; 85730; 86850; 86900; 88304; 93005; C1713 ×4; C1763; G0378 ×2; J0690 ×2; J1100; J1170; J1650; J1885; J2001; J2060; J2250; J2270; J2405; J2704; J2710; J3010; J7050; J7517; S0164; U0002; 77003